=== PATIENT | male | born 1995 | race Caucasian/White ===

== ENCOUNTER 2017-12-06 01:03 | Emergency (ER) | payer BC, OTHER ==
[2017-12-06 01:41] LABS: ABS Basophils 0.1 10^3/ul (0-0.2); ABS Eosinophils 0.1 10^3/ul (0-0.6); ABS Lymphocytes 2.9 10^3/ul (1.0-4.8); ABS Monocytes 0.6 10^3/ul (0-0.8); ABS Nucleated RBC 0 10^3/ul; Eosinophil % 1.2 % (0-6); Hematocrit 44 % (42-52); Lymphocyte % 37.7 % (25-47); Mean Corpuscular HGB Conc 34 g/dl (31-36); Mean Corpuscular Hemoglobin 34 pg (27-31); Mean Corpuscular Volume 99 fL (80-94); Mean Platelet Volume 7.4 um3 (7.4-10.4); Nucleated Red Blood Cells % 0.1; Platelet Count 228 10^3/ul (150-450); Red Blood Count 4.42 10^6/ul (4.0-5.4); Red Cell Distribution Width 13 % (10.5-15); White Blood Count 7.6 10^3/ul (3.5-10.8)
[2017-12-06 01:56] LABS: EGFR Non-African American 126.9 (>60)
[2017-12-06 01:57] LABS: Urine Appearance Cloudy; Urine Blood Negative (Negative); Urine Color Yellow; Urine Ketones Negative (Negative); Urine Protein Negative (Negative); Urine Specific Gravity 1.016 (1.010-1.030); Urine Urobilinogen Negative (Negative)
[2017-12-06] MEDS ORDERED: Iohexol 300* (CONTRAST) 10 ML SDV IV ONE (02:05)
[2017-12-06] MEDS ORDERED: Ketorolac INJ* 30 MG/ML 1 ML VIAL IV PUSH ONE (03:16)
--- NOTE | 2017-12-06 05:10 | ED ---
Eunice Brito Gabriel, scribed for Raheem Colon MD on 12/06/17 at 0126 . Abdominal Pain/Male - HPI Summary HPI Summary: This patient is a 22 year old M presenting to [facility] accompanied by his father with a chief complaint of RLQ pain that radiates into his groin that began 2 days ago. The patient rates the pain 6/10 in severity. Symptoms aggravated by movement. Patient reports testicular pain. Patient denies n/v and fever. - History of Current Complaint Chief Complaint: EDAbdPain Stated Complaint: ABD PAIN Time Seen by Provider: 12/06/17 01:13 Hx Obtained From: Patient Onset/Duration: Lasting Days - 3, Still Present Timing: Constant Pain Intensity: 6 Pain Scale Used: 0-10 Numeric Location: Discrete At: RLQ Radiates: Yes Radiates to: Inguinal Aggravating Factor(s): Movement Associated Signs And Symptoms: Positive: Negative - fever n/v - Allergies/Home Medications Allergies/Adverse Reactions: Allergies Allergy/AdvReac Type Severity Reaction Status Date / Time No Known Allergies Allergy Unverified 12/06/17 01:07 PMH/Surg Hx/FS Hx/Imm Hx Endocrine/Hematology History: Denies: Hx Anticoagulant Therapy, Hx Diabetes, Hx Thyroid Disease Cardiovascular History: Denies: Hx Cardiac Arrest, Hx Hypertension, Hx Pacemaker/ICD Respiratory History: Denies: Hx Asthma, Hx Chronic Obstructive Pulmonary Disease (COPD), Hx Lung Cancer, Other Respiratory Problems/Disorders History: Denies: Hx Renal Disease Musculoskeletal History: Denies: Hx Back Problems Neurological History: Denies: Hx Dementia, Hx Seizures Psychiatric History: Reports: Hx Attention Deficit Hyperactivity Disorder Denies: Hx Substance Abuse - Immunization History Date of Tetanus Vaccine: Up to date Date of Influenza Vaccine: None Infectious Disease History: No Infectious Disease History: Denies: Hx Hepatitis, Hx Human Immunodeficiency Virus (HIV), Traveled Outside the [place] in Last 30 Days - Family History Known Family History: Positive: Diabetes - Social History Lives: With Family Alcohol Use: None Substance Use Type: Reports: Excessive Caffeine Hx Tobacco Use: No Review of Systems Negative: Fever Positive: Abdominal Pain. Negative: Vomiting, Nausea Genitourinary: Other - testicular pain All Other Systems Reviewed And Are Negative: Yes Physical Exam - Summary Physical Exam Summary: Appearance: Well appearing, no pain distress Skin: warm, dry, reflects adequate perfusion Head/face: normal Eyes: EOMI, ABAD ENT: normal Neck: supple, non-tender Respiratory: CTA, breath sounds present Cardiovascular: RRR, pulses symmetrical Abdomen: RLQ is mildly TTP, soft, no rebound, no guarding, Bowel Sounds: present Musculoskeletal: normal, strength/ROM intact Neuro: normal, sensory motor intact, A&Ox3 : no inguinal hernias, no testicular tenderness Triage Information Reviewed: Yes Vital Signs On Initial Exam: Initial Vitals Temp Pulse Resp BP Pulse Ox 99.3 F 80 16 147/69 97 12/06/17 01:05 12/06/17 01:05 12/06/17 01:05 12/06/17 01:05 12/06/17 01:05 Vital Signs Reviewed: Yes Diagnostics - Vital Signs Vital Signs Temp Pulse Resp BP Pulse Ox 12/06/17 01:05 99.3 F 80 16 147/69 97 - Laboratory Lab Results: Lab Results 12/06/17 12/06/17 12/06/17 Range/Units 01:30 01:30 01:30 WBC 7.6 (3.5-10.8) 10^3/ul RBC 4.42 (4.0-5.4) 10^6/ul Hgb 15.0 (14.0-18.0) g/dl Hct 44 (42-52) % MCV 99 H (80-94) fL MCH 34 H (27-31) pg MCHC 34 (31-36) g/dl RDW 13 (10.5-15) % Plt Count 228 (150-450) 10^3/ul MPV 7.4 (7.4-10.4) um3 Neut % (Auto) 52.2 (38-83) % Lymph % (Auto) 37.7 (25-47) % Mayes % (Auto) 8.2 H (0-7) % Eos % (Auto) 1.2 (0-6) % Baso % (Auto) 0.7 (0-2) % Absolute Neuts (auto) 4.0 (1.5-7.7) 10^3/ul Absolute Lymphs (auto) 2.9 (1.0-4.8) 10^3/ul Absolute Monos (auto) 0.6 (0-0.8) 10^3/ul Absolute Eos (auto) 0.1 (0-0.6) 10^3/ul Absolute Basos (auto) 0.1 (0-0.2) 10^3/ul Absolute Nucleated RBC 0 10^3/ul Nucleated RBC % 0.1 Sodium 140 (139-145) mmol/L Potassium 3.6 (3.5-5.0) mmol/L Chloride 105 (101-111) mmol/L Carbon Dioxide 26 (22-32) mmol/L Anion Gap 9 (2-11) mmol/L BUN 9 (6-24) mg/dL Creatinine 0.78 (0.67-1.17) mg/dL Est GFR ( Amer) 163.2 (>60) Est GFR (Non-Af Amer) 126.9 (>60) BUN/Creatinine Ratio 11.5 (8-20) Glucose 108 H (70-100) mg/dL Lactic Acid 0.9 (0.5-2.0) mmol/L Calcium 10.1 (8.6-10.3) mg/dL Total Bilirubin 0.60 (0.2-1.0) mg/dL AST 20 (13-39) U/L ALT 17 (7-52) U/L Alkaline Phosphatase 83 (34-104) U/L C-Reactive Protein < 1.00 (< 5.00) mg/L Total Protein 7.3 (6.4-8.9) g/dL Albumin 5.2 (3.2-5.2) g/dL Globulin 2.1 (2-4) g/dL Albumin/Globulin Ratio 2.5 (1-3) Lipase 20 (11.0-82.0) U/L Urine Color Urine Appearance Urine pH (5-9) Ur Specific Perry (1.010-1.030) Urine Protein (Negative) Urine Ketones (Negative) Urine Blood (Negative) Urine Nitrate (Negative) Urine Bilirubin (Negative) Urine Urobilinogen (Negative) Ur Leukocyte Esterase (Negative) Urine Glucose (Negative) 12/06/17 Range/Units 01:45 WBC (3.5-10.8) 10^3/ul RBC (4.0-5.4) 10^6/ul Hgb (14.0-18.0) g/dl Hct (42-52) % MCV (80-94) fL MCH (27-31) pg MCHC (31-36) g/dl RDW (10.5-15) % Plt Count (150-450) 10^3/ul MPV (7.4-10.4) um3 Neut % (Auto) (38-83) % Lymph % (Auto) (25-47) % Mayes % (Auto) (0-7) % Eos % (Auto) (0-6) % Baso % (Auto) (0-2) % Absolute Neuts (auto) (1.5-7.7) 10^3/ul Absolute Lymphs (auto) (1.0-4.8) 10^3/ul Absolute Monos (auto) (0-0.8) 10^3/ul Absolute Eos (auto) (0-0.6) 10^3/ul Absolute Basos (auto) (0-0.2) 10^3/ul Absolute Nucleated RBC 10^3/ul Nucleated RBC % Sodium (139-145) mmol/L Potassium (3.5-5.0) mmol/L Chloride (101-111) mmol/L Carbon Dioxide (22-32) mmol/L Anion Gap (2-11) mmol/L BUN (6-24) mg/dL Creatinine (0.67-1.17) mg/dL Est GFR ( Amer) (>60) Est GFR (Non-Af Amer) (>60) BUN/Creatinine Ratio (8-20) Glucose (70-100) mg/dL Lactic Acid (0.5-2.0) mmol/L Calcium (8.6-10.3) mg/dL Total Bilirubin (0.2-1.0) mg/dL AST (13-39) U/L ALT (7-52) U/L Alkaline Phosphatase (34-104) U/L C-Reactive Protein (< 5.00) mg/L Total Protein (6.4-8.9) g/dL Albumin (3.2-5.2) g/dL Globulin (2-4) g/dL Albumin/Globulin Ratio (1-3) Lipase (11.0-82.0) U/L Urine Color Yellow Urine Appearance Cloudy Urine pH 8.0 (5-9) Ur Specific Perry 1.016 (1.010-1.030) Urine Protein Negative (Negative) Urine Ketones Negative (Negative) Urine Blood Negative (Negative) Urine Nitrate Negative (Negative) Urine Bilirubin Negative (Negative) Urine Urobilinogen Negative (Negative) Ur Leukocyte Esterase Negative (Negative) Urine Glucose Negative (Negative) Result Diagrams: 12/06/17 01:30 12/06/17 01:30 Lab Statement: Any lab studies that have been ordered have been reviewed, and results considered in the medical decision making process. - CT CT ABD/Pelvis CT Interpretation Completed By: Radiologist - suspected cholecystitis may be further evaluated with ultrasound. ED physician has reviewed this report Re-Evaluation - Re-Evaluation First Eval Re-Evaluation Time: 03:03 Change: Unchanged Comment: I discussed test results with the patient. Second Eval Re-Evaluation Time: 05:10 Change: Improved Abdominal Pain Fem Course/Dx - Course Course Of Treatment: Pt with R sided pain for several days. Not focal in the RLQ. CT shows pericholecystic fluid. Some tenderness without Hall in the RUQ. LFT/WBC wnl. Some stool R side. Pending US at 7am. Pain better with toradol. Sign out to Dr. Riley pending US. - Diagnoses Differential Diagnosis/HQI/PQRI: Appendicitis, Bowel Obstruction, Constipation, Gall Bladder Disease, Hepatitis, Pancreatitis, Peptic Ulcer Disease Provider Diagnoses: Right sided abdominal pain Discharge - Sign-Out/Discharge Documenting (check all that apply): Sign-Out Patient Signing out patient TO: Low Riley - awating US - Discharge Plan Condition: Stable Referrals: Parker Yan MD [Primary Care Provider] - - Billing Disposition and Condition Condition: STABLE The documentation as recorded by the Eunice kennedy Gabriel accurately reflects the service I personally performed and the decisions made by me, Raheem Colon MD.
--- NOTE | 2017-12-06 07:45 | RAD ---
CLINICAL HISTORY: Right lower quadrant pain COMPARISON: Ultrasound dated December 06, 2014 TECHNIQUE: Multiple contiguous axial CT scans were obtained of the abdomen and pelvis after the administration of intravenous contrast. Coronal and sagittal multiplanar reformations are submitted for review. Oral contrast was administered. Delayed images were obtained through the abdomen and pelvis. FINDINGS: LUNG BASES: The lung bases are clear. LIVER: There is mild periportal edema. There are no focal hepatic parenchymal BILE DUCTS: There is no intrahepatic or extrahepatic biliary dilatation. GALLBLADDER: There is gallbladder wall thickening. PANCREAS: The pancreas is normal, without mass or ductal dilatation. SPLEEN: Normal in size and appearance. UPPER GI TRACT: Evaluation of the gastrointestinal tract is limited by incomplete gastric distention. The upper GI tract is unremarkable. SMALL BOWEL AND MESENTERY: The small bowel is normal in contour, course, and caliber. There is no obstruction or dilatation. COLON: The colon is normal in contour, course, caliber. There is no pericolonic inflammatory change. There is a tubular, vermiform, hollow viscus that is blind ending, and originates from the cecum, consistent with a normal appendix. There is no periappendiceal inflammatory change. This is best seen on coronal images 36 through 40. ADRENALS: Normal bilaterally. KIDNEYS: The kidneys are normal in shape, size, contour, and axis. There is no hydronephrosis or nephrolithiasis. BLADDER: The bladder is smooth in contour. PELVIC ORGANS: The prostate gland is normal. The seminal vesicles are symmetric. AORTA: The aorta is normal. IVC: Unremarkable LYMPH NODES: There is no lymphadenopathy by size criteria. ABDOMINAL WALL: There is no evidence for abdominal wall hernia. BONES AND SOFT TISSUES: There is mild scoliotic curvature of the spine OTHER: There is trace amount of pelvic ascites. IMPRESSION: 1. NORMAL APPENDIX. 2. THERE IS MILD PERIPORTAL EDEMA WITH A SMALL AMOUNT OF PELVIC ASCITES. 3. THERE IS GALLBLADDER WALL THICKENING. THIS MAY REFLECT REACTIVE EDEMA FROM A HEPATIC INFLAMMATORY PROCESS, HYPOPROTEINEMIA, OR A PRIMARY INFECTIOUS OR INFLAMMATORY PROCESS OF THE GALLBLADDER.
--- NOTE | 2017-12-06 08:15 | RAD ---
Indication: Right upper quadrant pain. Real-time sonography of the right upper quadrant was performed. The liver measures 17 cm in length. No focal lesions or intrahepatic ductal dilatation is noted. The gallbladder demonstrates no gallstones, pericholecystic fluid or wall thickening. Common duct is not dilated. The right kidney measures 10.7 x 4.2 x 4.8 cm with no hydronephrosis. The pancreas head, neck and proximal body demonstrates no mass or pancreatic duct dilatation. Aorta and inferior vena cava are unremarkable. IMPRESSION: No evidence of cholelithiasis or biliary dilatation is noted.
[2017-12-06 08:53] VITALS: BP 117/55
--- NOTE | 2017-12-06 16:48 | ED ---
Aleksandar Brito Angela, faithed for Jono Eddy MD on 12/06/17 at 0731 . Progress - Progress Note Progress Note: This pt was signed out by Dr. Colon, pending disposition, awaiting US gallbladder. Pt is a 22 y/o male presenting to [facility] c/o right sided pain for several days. Gallbladder US, as read by radiologist IMPRESSION: No evidence of cholelithiasis or biliary dilatation is noted. Dr. Eddy has reviewed this radiology report. Re-Evaluation - Re-Evaluation First Eval Re-Evaluation Time: 08:36 Change: Improved Comment: Pt reports feeling better after Toradol. I discussed the US results with the pt and father. Pt will be discharged home. Course/Dx - Course Course Of Treatment: This pt was signed out by Dr. Colon to follow up on the ultrasound of the RUQ. RUQ ultrasound shows no evidence of cholelithiasis or biliary dilatation is noted. The pt is feeling better and he does not have any pain. His pain was resolved after Toradol. As per recommendation from Dr. Colon the pt will be discharged to home with follow up from his PCP. He was asked to return to the ED for any more pain, nausea, vomiting, diarrhea, fever, chills, or any other worsening symptoms. Pt is hemodynamically stable, alert and oriented x3. - Diagnoses Provider Diagnoses: Right sided abdominal pain Discharge - Sign-Out/Discharge Documenting (check all that apply): Discharge - discharge to home, Receiving Sign-Out Receiving patient FROM: Raheem Colon - Discharge Plan Condition: Stable Disposition: HOME Patient Education Materials: Abdominal Pain (ED) Referrals: Parker Yan MD [Primary Care Provider] - 3 Days Additional Instructions: Please follow up with your primary care provider. RETURN TO THE ED FOR ANY NEW OR WORSENING SYMPTOMS. The documentation as recorded by the Aleksandar kennedy Angela accurately reflects the service I personally performed and the decisions made by me, Jono Eddy MD.
== END 2017-12-06 08:51 | disposition home or self-care (01) ==
LOC: ED 01:03
DX: R10.11 Right upper quadrant pain (principal); F90.9 Attention-deficit hyperactivity disorder, unspecified type
CPT/HCPCS: 36415; 74177; 76705; 80053; 81003; 83605; 83690; 85025; 86140; 96374; 96375; 99282; J1885; Q9967

== ENCOUNTER 2017-12-06 19:15 | Emergency (ER) | payer OTHER ==
[2017-12-06 19:26] VITALS: BP 145/75
--- NOTE | 2017-12-06 20:19 | UC ---
Abdominal Pain Male HPI - HPI Summary HPI Summary: [facility]. Patient has 3 days of waxing and waning right lower abdominal pain right flank pain and now pretty consistent right testicular pain. Patient had a gallbladder ultrasound last night and a CT scan of his abdomen that were inconclusive. Patient has not been able to eat today but he has not been nauseated nor is he thrown up. Patient has noted that he has increasing pain throughout the day and will get pain with movement. Patient denies being sexually activity he denies drip he denies burning with urination. Patient is concerned about testicular cancer as he has strong family history - History of Current Complaint Chief Complaint: UCGeneralIllness Stated Complaint: GROIN PAIN Time Seen by Provider: 12/06/17 19:52 Hx Obtained From: Patient Onset/Duration: Gradual Onset, Lasting Days - 3 Timing: Constant Severity Initially: Mild Severity Currently: Moderate Pain Intensity: 6 Pain Scale Used: 0-10 Numeric Location: Discrete At: RLQ, Other - right testicle Radiates: Yes Radiates to: Flank Aggravating Factor(s): Movement Alleviating Factor(s): Nothing Associated Signs And Symptoms: Positive: Decreased Appetite - Allergies/Home Medications Allergies/Adverse Reactions: Allergies Allergy/AdvReac Type Severity Reaction Status Date / Time No Known Allergies Allergy Verified 12/06/17 19:26 PMH/Surg Hx/FS Hx/Imm Hx Previously Healthy: Yes Cancer History: Other Other Cancer History: testicular cancer Other History Of: Negative For: Anticoagulant Therapy - Surgical History Surgical History: None - Family History Known Family History: Positive: Diabetes - Social History Occupation: Employed Full-time Lives: With Family Alcohol Use: None Substance Use Type: None Smoking Status (MU): Current Some Day Smoker Review of Systems Constitutional: Negative Skin: Negative Eyes: Negative ENT: Negative Respiratory: Negative Cardiovascular: Negative Gastrointestinal: Negative, Abdominal Pain Genitourinary: Negative, Other - right testicle pain Motor: Negative Neurovascular: Negative Musculoskeletal: Negative Neurological: Negative Psychological: Negative Is Patient Immunocompromised?: No All Other Systems Reviewed And Are Negative: Yes Physical Exam Triage Information Reviewed: Yes Appearance: Well-Appearing, No Pain Distress, Thin Vital Signs: Initial Vital Signs Temp 98.0 F 12/06/17 19:20 Pulse 56 12/06/17 19:20 Resp 20 12/06/17 19:20 BP 145/75 12/06/17 19:20 Pulse Ox 100 12/06/17 19:20 Vital Signs Reviewed: Yes Eye Exam: Normal Eyes: Positive: Conjunctiva Clear ENT Exam: Normal ENT: Positive: Normal ENT inspection, Hearing grossly normal. Negative: Trismus , Muffled voice, Hoarse voice Neck exam: Normal Neck: Positive: Supple, Nontender, No Lymphadenopathy Respiratory Exam: Normal Respiratory: Positive: Normal breath sounds, No respiratory distress, No accessory muscle use Cardiovascular Exam: Normal Cardiovascular: Positive: RRR, Pulses Normal, Brisk Capillary Refill Abdominal Exam: Other - diffuse waxing and waning abdomen pain Abdomen Description: Positive: No Organomegaly, Soft, Other:. Negative: Nontender, CVA Tenderness (L), Distended, Guarding Male Genital Exam: Positive: Normal Genitalia, No Hernia, Epididymal Tenderness - right right, Testicular Tenderness (R) Musculoskeletal Exam: Normal Musculoskeletal: Positive: Strength Intact, ROM Intact, No Edema Neurological Exam: Normal Neurological: Positive: Alert, Muscle Tone Normal Psychological Exam: Normal Psychological: Positive: Normal Response To Family, Age Appropriate Behavior Skin Exam: Normal Skin: Positive: rashes Diagnostics - Laboratory Diagnostic Studies Completed/Ordered: u/a wnl Abd Pain Male Course/Dx - Course Course Of Treatment: Plan to send patient to [facility] emergency Department by private car with father driving. Report given to Dr. Oconnell, patient 's concerns about testicular issues shared with doctor - Differential Dx/Clinical Impression Provider Diagnoses: right testicular pain, elevated blood pressure without diagnosis of hypertension Discharge - Sign-Out/Discharge Documenting (check all that apply): Discharge - Discharge Plan Condition: Stable Disposition: HOME Patient Education Materials: Testicle Pain (ED) Forms: *Work Release Referrals: Parker Yan MD [Primary Care Provider] - 1 Day Additional Instructions: Your being discharged from the urgent care to go directly to the emergency department for further evaluation of the right testicular pain - Billing Disposition and Condition Condition: STABLE Disposition: HOME
== END 2017-12-06 20:30 | disposition home or self-care (01) ==
LOC: UCEAST 19:15
DX: N50.811 Right testicular pain (principal); R03.0 Elevated blood-pressure reading, without diagnosis of hypertension; Z72.0 Tobacco use
CPT/HCPCS: 81003; 99211; G0463

== ENCOUNTER 2017-12-06 21:12 | Emergency (ER) | payer OTHER ==
[2017-12-06] MEDS ORDERED: Ketorolac INJ* 30 MG/ML 1 ML VIAL IV PUSH ONE (22:02)
[2017-12-06 22:17] LABS: ABS Basophils 0 10^3/ul (0-0.2); ABS Eosinophils 0.1 10^3/ul (0-0.6); ABS Lymphocytes 2.3 10^3/ul (1.0-4.8); ABS Monocytes 0.6 10^3/ul (0-0.8); ABS Neutrophils 3.7 10^3/ul (1.5-7.7); ABS Nucleated RBC 0 10^3/ul; Eosinophil % 0.8 % (0-6); Hematocrit 45 % (42-52); Hemoglobin 15.4 g/dl (14.0-18.0); Lymphocyte % 34.6 % (25-47); Mean Corpuscular HGB Conc 34 g/dl (31-36); Mean Corpuscular Hemoglobin 34 pg (27-31); Mean Corpuscular Volume 99 fL (80-94); Mean Platelet Volume 7.4 um3 (7.4-10.4); Nucleated Red Blood Cells % 0.1; Platelet Count 244 10^3/ul (150-450); Red Blood Count 4.55 10^6/ul (4.0-5.4); Red Cell Distribution Width 13 % (10.5-15); White Blood Count 6.7 10^3/ul (3.5-10.8)
[2017-12-06 22:34] LABS: EGFR Non-African American 126.9 (>60)
[2017-12-07 00:20] VITALS: BP 112/64
--- NOTE | 2017-12-07 04:42 | ED ---
Jason Brito Tecjoon, scribed for Raheem Colon MD on 12/06/17 at 2214 . Abdominal Pain/Male - HPI Summary HPI Summary: This patient is a 22 year old male presenting to [facility] accompanied by father with a chief complaint of right sided abd pain and testicular pain since a few days ago, worsening [employer]IP[employer] BL[employer] WH[employer]. The pain is rated 5/10 in severity. Symptoms aggravated by nothing. Symptoms alleviated by nothing. Patient denies dysuria, nausea, vomiting, diarrhea, fever. Patient was seen last night for similar symptoms. Patients abd CT scan was normal, with some fluid around the gallbladder. Patient was evaluated with US, which was normal. Bloodwork was normal. - History of Current Complaint Chief Complaint: EDUrogenitalProblems Stated Complaint: ABD PAIN Time Seen by Provider: 12/06/17 21:19 Hx Obtained From: Patient Onset/Duration: Still Present Timing: Constant Severity Currently: Moderate Pain Intensity: 5 Pain Scale Used: 0-10 Numeric Location: Discrete At: RUQ, Discrete At: RLQ Radiates: Yes Radiates to: Other - testes Aggravating Factor(s): Nothing Alleviating Factor(s): Nothing Associated Signs And Symptoms: Positive: Negative - dysuria, nausea, vomiting, diarrhea, fever - Allergies/Home Medications Allergies/Adverse Reactions: Allergies Allergy/AdvReac Type Severity Reaction Status Date / Time No Known Allergies Allergy Verified 12/06/17 21:46 PMH/Surg Hx/FS Hx/Imm Hx Previously Healthy: No Endocrine/Hematology History: Denies: Hx Anticoagulant Therapy, Hx Diabetes, Hx Thyroid Disease Cardiovascular History: Denies: Hx Cardiac Arrest, Hx Hypertension, Hx Pacemaker/ICD Respiratory History: Denies: Hx Asthma, Hx Chronic Obstructive Pulmonary Disease (COPD), Hx Lung Cancer, Other Respiratory Problems/Disorders GI History: Denies: Hx Ulcer History: Denies: Hx Renal Disease Musculoskeletal History: Denies: Hx Back Problems Neurological History: Denies: Hx Dementia, Hx Seizures Psychiatric History: Reports: Hx Attention Deficit Hyperactivity Disorder Denies: Hx Substance Abuse - Immunization History Date of Tetanus Vaccine: Up to date Date of Influenza Vaccine: None Infectious Disease History: No Infectious Disease History: Denies: Hx Hepatitis, Hx Human Immunodeficiency Virus (HIV), Traveled Outside the [place] in Last 30 Days - Family History Known Family History: Positive: Diabetes - Social History Lives: With Family Alcohol Use: None Hx Substance Use: No Substance Use Type: Reports: None Hx Tobacco Use: No Smoking Status (MU): Never Smoked Tobacco Review of Systems Negative: Fever Positive: Abdominal Pain. Negative: Vomiting, Diarrhea, Nausea Negative: dysuria All Other Systems Reviewed And Are Negative: Yes Physical Exam - Summary Physical Exam Summary: Appearance: Well appearing, no pain distress Skin: warm, dry, reflects adequate perfusion Head/face: normal Eyes: EOMI, ABAD ENT: normal Neck: supple, non-tender Respiratory: CTA, breath sounds present Cardiovascular: RRR, pulses symmetrical Abdomen: Mild tenderness diffusely on right side. No suprapubic tenderness. No epididimal tenderness. No hernia.t Bowel Sounds: present Musculoskeletal: normal, strength/ROM intact Neuro: normal, sensory motor intact, A&Ox3 Triage Information Reviewed: Yes Vital Signs On Initial Exam: Initial Vitals Temp Pulse Resp BP Pulse Ox 98.9 F 68 16 136/87 96 12/06/17 21:40 12/06/17 21:40 12/06/17 21:40 12/06/17 21:40 12/06/17 21:40 Vital Signs Reviewed: Yes Diagnostics - Vital Signs Vital Signs Temp Pulse Resp BP Pulse Ox 12/06/17 21:40 98.9 F 68 16 136/87 96 - Laboratory Lab Results: Lab Results 12/06/17 12/06/17 12/06/17 Range/Units 22:05 22:05 22:05 WBC 6.7 (3.5-10.8) 10^3/ul RBC 4.55 (4.0-5.4) 10^6/ul Hgb 15.4 (14.0-18.0) g/dl Hct 45 (42-52) % MCV 99 H (80-94) fL MCH 34 H (27-31) pg MCHC 34 (31-36) g/dl RDW 13 (10.5-15) % Plt Count 244 (150-450) 10^3/ul MPV 7.4 (7.4-10.4) um3 Neut % (Auto) 54.8 (38-83) % Lymph % (Auto) 34.6 (25-47) % Slope % (Auto) 9.1 H (0-7) % Eos % (Auto) 0.8 (0-6) % Baso % (Auto) 0.7 (0-2) % Absolute Neuts (auto) 3.7 (1.5-7.7) 10^3/ul Absolute Lymphs (auto) 2.3 (1.0-4.8) 10^3/ul Absolute Monos (auto) 0.6 (0-0.8) 10^3/ul Absolute Eos (auto) 0.1 (0-0.6) 10^3/ul Absolute Basos (auto) 0 (0-0.2) 10^3/ul Absolute Nucleated RBC 0 10^3/ul Nucleated RBC % 0.1 Sodium 140 (139-145) mmol/L Potassium 3.3 L (3.5-5.0) mmol/L Chloride 105 (101-111) mmol/L Carbon Dioxide 25 (22-32) mmol/L Anion Gap 10 (2-11) mmol/L BUN 11 (6-24) mg/dL Creatinine 0.78 (0.67-1.17) mg/dL Est GFR ( Amer) 163.2 (>60) Est GFR (Non-Af Amer) 126.9 (>60) BUN/Creatinine Ratio 14.1 (8-20) Glucose 93 (70-100) mg/dL Lactic Acid 1.2 (0.5-2.0) mmol/L Calcium 9.8 (8.6-10.3) mg/dL Total Bilirubin 1.10 H (0.2-1.0) mg/dL AST 16 (13-39) U/L ALT 15 (7-52) U/L Alkaline Phosphatase 69 (34-104) U/L C-Reactive Protein < 1.00 (< 5.00) mg/L Total Protein 7.4 (6.4-8.9) g/dL Albumin 5.1 (3.2-5.2) g/dL Globulin 2.3 (2-4) g/dL Albumin/Globulin Ratio 2.2 (1-3) Lipase 27 (11.0-82.0) U/L Result Diagrams: 12/06/17 22:05 12/06/17 22:05 Lab Statement: Any lab studies that have been ordered have been reviewed, and results considered in the medical decision making process. - Radiology Abd XR Xray Interpretation: Positive (See Comments) - Abd XR reveals, per radiologist, IMPRESSION: NONSPECIFIC BOWEL GAS PATTERN. ED physician has reviewed this radiology report. Radiology Interpretation Completed By: Radiologist - Additional Comments Diagnostic Additional Comments: US Testicular reveals, per radiologist, IMPRESSION: RIGHT EPIDIDIMAL CYST, NO TORSION. ED physician has reviewed this radiology report. Re-Evaluation - Re-Evaluation First Eval Re-Evaluation Time: 23:49 Change: Improved Comment: Patient no longer feels pain after Toradol. Abdominal Pain Fem Course/Dx - Course Course Of Treatment: well appearing today with min discomfort, but now felt into testicle. UA again neg. CRP < 1. No RLQ tenderness. R sided stool on CT yesterday and NORMAL appendix. Today no pain in the RUQ. GB US had been wnl. Resolved with toradol. KUB benign and US testicles neg for torsion etc. Will put on bowel regimen and have f/u closely with his PMD Saturday. - Diagnoses Differential Diagnosis/HQI/PQRI: Constipation, Epididymitis, Gall Bladder Disease, Renal Colic, Testicular Torsion, Ureteral Stone Provider Diagnoses: Epididymal cyst, Right-sided abdominal pain of unknown cause Discharge - Sign-Out/Discharge Documenting (check all that apply): Discharge - Discharge Plan Condition: Improved Disposition: HOME Prescriptions: Hyoscyamine Sulfate [Levsin-Sl] 0.125 mg SL Q4H PRN #20 tab.subl PRN Reason: abdominal cramping Polyethylene Glycol 3350* [Miralax*] 17 gm PO TID #1 bottle Patient Education Materials: Acute Abdominal Pain (ED) Referrals: Parker Yan MD [Primary Care Provider] - Additional Instructions: tylenol/ibuprofen for baseline pain. Return with fever, increased pain (especially in the right low abdomen). See your doctor to follow up on Saturday. If pain continues further studies such as an oral contrasted CT scan or other testing may need to be performed. - Billing Disposition and Condition Condition: IMPROVED Disposition: HOME The documentation as recorded by the Jason kennedy Tecjoon accurately reflects the service I personally performed and the decisions made by me, Raheem Colon MD.
--- NOTE | 2017-12-07 09:25 | RAD ---
INDICATION: Right-sided abdominal pain COMPARISON: None TECHNIQUE: 2 views the abdomen were obtained. FINDINGS: There are no acute bony or soft tissue abnormalities. Gas-filled loops of small bowel in the left lower quadrant are top normal in diameter measuring 2.7 cm. There is no pathologic dilatation strictly by size criteria. There is no definite bowel wall thickening. Gas and stool appears to be overlying the rectum. There are no obvious coarse calcifications overlying the expected location of the bilateral collecting systems or ureters. IMPRESSION: TOP NORMAL LOOPS OF SMALL BOWEL MEASURING 2.7 CM COULD BE SEEN IN THE SETTING OF INFECTIOUS OR INFLAMMATORY BOWEL DISEASE. THERE IS NO PATHOLOGIC DISTENTION TO INDICATE OBSTRUCTION.
--- NOTE | 2017-12-07 09:37 | RAD ---
INDICATION: Right testicle pain COMPARISON: None TECHNIQUE: Duplex interrogation of the scrotum was performed. FINDINGS: The testicles are normal in size and echogenicity. There is no evidence for testicular mass. The right testis measures 3.9 x 2.3 x 3 point cm and the left 4.3 x 2.0 x 2.9 cm. There is symmetric flow on Doppler interrogation. Arterial and venous waveforms are identified bilaterally. The epididymides appear normal. The right epididymal head measures 1.5 x 1.8 cm and the left 0.9 x 1.2 cm. At the right epididymal head there is an anechoic and avascular structure with scattered more deep tendon echogenic foci measuring 1.5 x 1.3 x 1.6 centimeters. There are no hydroceles. There are no varicoceles. IMPRESSION: Right epididymal head cyst measuring 1.6 cm in greatest dimension in this otherwise normal scrotal ultrasound.
== END 2017-12-07 00:18 | disposition home or self-care (01) ==
LOC: ED 21:12
DX: N50.3 Cyst of epididymis (principal); R10.9 Unspecified abdominal pain
CPT/HCPCS: 36415; 74018; 76870; 80053; 83605; 83690; 85025; 86140; 96374; 99282; J1885

== ENCOUNTER → 2019-01-20 20:04 | Emergency (ER) | payer OTHER ==
--- NOTE | 2019-01-20 21:02 | ED ---
GI/ HPI - HPI Summary HPI Summary: This patient is a 23 year old male presenting to [facility] with a chief complaint of testicular swelling, pain, and erythema on the right side since one week ago. The patient had a similar problem without swelling one year ago, and saw Dr. Jauregui, Urology, who thought it may have been a cyst that resolved on its own. The reports mild abdominal pain. He denies hematuria. He rates his pain 5/ 10 in severity. - History of Current Complaint Chief Complaint: EDUrogenitalProblems Time Seen by Provider: 01/20/19 20:56 Stated Complaint: TESTICULAR PAIN PER PT Hx Obtained From: Patient Onset/Duration: Started Days Ago Timing: Lasting Days Severity: Moderate Current Severity: Moderate Pain Intensity: 5 - Allergy/Home Medications Allergies/Adverse Reactions: Allergies Allergy/AdvReac Type Severity Reaction Status Date / Time No Known Allergies Allergy Verified 01/20/19 20:11 PMH/Surg Hx/FS Hx/Imm Hx Endocrine/Hematology History: Denies: Hx Anticoagulant Therapy, Hx Diabetes, Hx Thyroid Disease Cardiovascular History: Denies: Hx Cardiac Arrest, Hx Hypertension, Hx Pacemaker/ICD Respiratory History: Denies: Hx Asthma, Hx Chronic Obstructive Pulmonary Disease (COPD), Hx Lung Cancer, Other Respiratory Problems/Disorders GI History: Denies: Hx Ulcer History: Denies: Hx Renal Disease Musculoskeletal History: Denies: Hx Back Problems Neurological History: Denies: Hx Dementia, Hx Seizures Psychiatric History: Reports: Hx Attention Deficit Hyperactivity Disorder Denies: Hx Substance Abuse - Immunization History Date of Tetanus Vaccine: Up to date Date of Influenza Vaccine: None Infectious Disease History: No Infectious Disease History: Denies: Hx Hepatitis, Hx Human Immunodeficiency Virus (HIV), Traveled Outside the [place] in Last 30 Days - Family History Known Family History: Positive: Diabetes - Social History Alcohol Use: None Hx Substance Use: No Substance Use Type: Reports: None Hx Tobacco Use: No Smoking Status (MU): Never Smoked Tobacco Review of Systems Positive: Abdominal Pain Positive: pain, other - Erythema, edema. Negative: hematuria All Other Systems Reviewed And Are Negative: Yes Physical Exam - Summary Physical Exam Summary: Appearance: Well-appearing, Well-nourished, lying in bed comfortably Skin: Warm, dry, no obvious rash Eyes: sclera anicteric, no conjunctival pallor ENT: mucous membranes moist, pharynx appears normal Neck: Supple, nontender Respiratory: Clear to auscultation, no signs of respiratory distress Cardiovascular: Normal S1, S2. No murmurs. Normal distal pulses in tibial and radial bilaterally. Abdomen: Soft, nontender, normal active bowel sounds present Musculoskeletal: Normal, Strength/ROM Intact Neurological: A&Ox3, awake and alert, mentation is normal, speech is fluent and appropriate Psychiatric: affect is normal, does not appear anxious or depressed Testicular:Normal Triage Information Reviewed: Yes Vital Signs On Initial Exam: Initial Vitals Temp Pulse Resp BP Pulse Ox 98.7 F 85 16 139/77 100 01/20/19 20:05 01/20/19 20:05 01/20/19 20:05 01/20/19 20:05 01/20/19 20:05 Vital Signs Reviewed: Yes Diagnostics - Vital Signs Vital Signs Temp Pulse Resp BP Pulse Ox 01/20/19 20:05 98.7 F 85 16 139/77 100 - Laboratory Lab Statement: Any lab studies that have been ordered have been reviewed, and results considered in the medical decision making process. - Ultrasound No standard instances Ultrasound Interpretation Completed By: Radiologist Summary of Ultrasound Findings: Testicular: 1. No testicular mass. Color flow and vascular waveforms are documented bilaterally. 2. Minimal left hydrocele. 3. No definite evidence for epididymitis. ED Provider has reviewed this report. GIGU Course/Dx - Course Course Of Treatment: This patient is a 23 year old male presenting to [facility] with a chief complaint of testicular swelling, pain, and erythema on the right side since one week ago. Physical exam and testicular U/S were unremarkable for genitourinary problems. A plan for discharge was discussed with the patient and he was agreeable with this plan. - Diagnoses Provider Diagnoses: Swelling of right testicle Discharge - Sign-Out/Discharge Documenting (check all that apply): Patient Departure - Discharge Patient Received Moderate/Deep Sedation with Procedure: No - Discharge Plan Condition: Stable Disposition: HOME Patient Education Materials: Testicular Torsion (ED) Referrals: Chirag Jauregui MD [Medical Doctor] - (as scheduled) Additional Instructions: Your ultrasound did not show any evidence of testicular torsion, it looked quite normal. Dr. Jauregui should be able to help you make a diagnosis of the trouble you've had, but certainly nothing emergent like testicular torsion appears to be present. - Billing Disposition and Condition Condition: STABLE Disposition: Home - Attestation Statements Document Initiated by Roula: Yes Documenting Scribe: Roverto Mascorro Provider For Whom Roula is Documenting (Include Credential): Low Benz MD Scribe Attestation: Roverto Brito, scribed for Low Benz MD on 01/21/19 at 0456. Scribe Documentation Reviewed: Yes Provider Attestation: The documentation as recorded by the Roverto kennedy accurately reflects the service I personally performed and the decisions made by me, Low Benz MD Status of Scribe Document: Viewed
[2019-01-20 21:18] VITALS: BP 131/60
== END | disposition home or self-care (01) ==
LOC: ED 20:04
DX: N50.89 Other specified disorders of the male genital organs (principal); R60.0 Localized edema; R10.9 Unspecified abdominal pain; F90.9 Attention-deficit hyperactivity disorder, unspecified type
CPT/HCPCS: 76870; 99281